=== PATIENT | male | born 1995 | race Caucasian/White ===

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

== ENCOUNTER 2017-06-21 10:14 | Emergency (ER) | payer OTHER ==
[2017-06-21 10:25] VITALS: BP 124/85; PULSE 84; RESP 16; TEMP 97.9; O2SAT 98
--- NOTE | 2017-06-21 10:36 | EDPHY ---
H & P Stated Complaint: st Time Seen by Provider: 06/21/17 10:36 HPI/ROS: HPI: This is a 22-year-old male who presents with Chief Complaint: Sore throat Location: Throat Quality: Sore Duration: 1-2 days Signs and Symptoms: No fever, no body aches, no chills, no difficulty swallowing, no ear pain, no neck stiffness, no headache, no nasal congestion, ear pain Timing: Sudden Severity: [id number] Context: Patient complains of sore throat for the last 1-2 days; noticed some white exudate on the left tonsil. Denies cough/swollen glands. Eating and drinking normally. Modifying Factors: Has been taking Tylenol and ibuprofen with relief Comment: ROS: see HPI Constitutional: No fever, no chills, no weight loss Eyes: No blurred vision Respiratory: No shortness of breath, no cough Cardiovascular: No chest pain Gastrointestinal: No nausea, no vomiting, no diarrhea Genitourinary: No dysuria Extremities: No myalgias Neurologic: No weakness, no numbness Skin: No rashes Hematologic: No bruising, no bleeding MEDICAL/SURGICAL/SOCIAL HISTORY: Medical history: Generally healthy. Does not take any regular medications. Surgical history: Denies Social history: College student CONSTITUTIONAL: awake and alert, no obvious distress HEENT: Atraumatic and normocephalic, PERRL, EOMI. Tympanic membranes clear. Oropharynx clear, tonsils 1+; mild erythema; 1 patch of exudate noted on left tonsil; uvula midline; moist pink mucosa. Airway patent. No lymphadenopathy. No meningismus. Cardiovascular: Normal S1/S2, regular rate, regular rhythm, without murmur rub or gallop. PULMONARY/CHEST: Symmetrical and nontender. Clear to auscultation bilaterally. Good air movement. No accessory muscle usage. ABDOMEN: Soft, nondistended, nontender, no rebound, no guarding, no peritoneal signs, no masses or organomegaly. No CVAT. EXTREMITIES: 2/2 pulses, no deformities, no clubbing, no cyanosis or edema. NEUROLOGICAL: no focal neuro deficits. GCS 15. SKIN: Warm and dry, no erythema. no rash. Good capillary refill. Source: Patient Exam Limitations: No limitations - Personal History Current Tetanus/Diphtheria Vaccine: Yes Tetanus Vaccine Date: 2015 - Medical/Surgical History Hx Asthma: No Hx Chronic Respiratory Disease: No Hx Diabetes: No Hx Cardiac Disease: No Hx Renal Disease: No Hx Cirrhosis: No Hx Alcoholism: No Hx HIV/AIDS: No Hx Splenectomy or Spleen Trauma: No Other PMH: L wrist sx - Social History Smoking Status: Never smoked Constitutional: Initial Vital Signs Temperature (C) 36.6 C 06/21/17 10:23 Heart Rate 84 06/21/17 10:23 Respiratory Rate 16 06/21/17 10:23 Blood Pressure 124/85 H 06/21/17 10:23 O2 Sat (%) 98 06/21/17 10:23 O2 Delivery Mode Room Air Allergies/Adverse Reactions: No Known Allergies Allergy (Verified 06/21/17 10:23) Home Medications: Medication Instructions Recorded Meera 07/09/16 Medical Decision Making ED Course/Re-evaluation: Strep test negative Given viscous lidocaine and p.o. Decadron 8 mg with relief No signs of airway compromise/sepsis/tonsillar abscess Advised supportive care Differential Diagnosis: Differential diagnosis includes infectious mononucleosis, viral syndrome, viral pharyngitis, streptococcal pharyngitis. - Data Points Laboratory Results: 06/21/17 06/21/17 Unknown 10:28 Group A Strep Screen NEGATIVE (NEGATIVE) Group A Strep DNA Pending Medications Given: Discontinued Medications Dexamethasone (Decadron) 8 mg PO EDNOW ONE Stop: 06/21/17 11:02 Last Admin: 06/21/17 11:05 Dose: 8 mg Ibuprofen (Motrin) 600 mg PO EDNOW ONE Stop: 06/21/17 10:37 Last Admin: 06/21/17 10:38 Dose: 600 mg Lidocaine (Lidocaine 2% Viscous) 15 ml PO EDNOW ONE Stop: 06/21/17 10:36 Last Admin: 06/21/17 10:38 Dose: 15 ml Departure - Departure Disposition: Home, Routine, Self-Care Clinical Impression: Viral pharyngitis Condition: Good Instructions: Pharyngitis (ED) Additional Instructions: You do not have strep throat. It appears you have a viral infection. Please take Tylenol and Ibuprofen as needed for fever and pain. Perform salt water gargles multiple times per day to relieve your sore throat. Drink plenty of fluids including hot tea with honey. Rest as much as possible. Referrals: [facility],. [Clinic] - As per Instructions
[2017-06-21] MEDS: LIDOCAINE 2% VISCOUS 15 ML UDCUP PO ONE (10:38)
[2017-06-21] MEDS: IBUPROFEN 600 MG TAB PO ONE (10:38)
[2017-06-21] MEDS: DEXAMETHASONE 4 MG TAB PO ONE (11:05)
== END 2017-06-21 11:11 | disposition home or self-care (01) ==
DX: J02.8 Acute pharyngitis due to other specified organisms (principal); B97.89 Other viral agents as the cause of diseases classified elsewhere

== ENCOUNTER 2018-01-10 01:47 | Emergency (ER) | payer OTHER ==
[2018-01-10] MEDS ORDERED: SKIN ADHESIVE (DERMABOND) 1 EACH TP ONE ×2 (03:08)
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
[2018-01-10 03:51] VITALS: BP 124/84
== END 2018-01-10 04:00 | disposition home or self-care (01) ==
PROC: 0HQ1XZZ Repair Face Skin, External Approach (ICD-10-PCS; principal; 2018-01-10)
DX: S01.81XA Laceration without foreign body of other part of head, initial encounter (principal); F10.920 Alcohol use, unspecified with intoxication, uncomplicated; S40.811A Abrasion of right upper arm, initial encounter; S40.812A Abrasion of left upper arm, initial encounter; V18.4XXA Pedal cycle driver injured in noncollision transport accident in traffic accident, initial encounter; Y92.410 Unspecified street and highway as the place of occurrence of the external cause; Y99.8 Other external cause status; Y93.39 Activity, other involving climbing, rappelling and jumping off